=== PATIENT | female | born 1980 | race African-American/Black ===

== ENCOUNTER 2019-11-30 17:40 | Inpatient (IN) | payer OTHER ==
[~2019-11-30] VITALS: Ht 170.2 cm; Wt 86.0 kg
[2019-11-30 19:20] LABS: Urine Bacteria FEW /hpf (None Seen); Urine Blood 2+ /uL (Negative); Urine Mucus FEW (None Seen); Urine Specific Gravity 1.039 (1.001-1.035); Urine WBC 1 /hpf (0 - 5)
[2019-11-30] MEDS ORDERED: LACTATED RINGER'S 1,000 ML IV ONE (21:15)
[2019-11-30 21:54] LABS: Basophils # (auto) 0 10 ^3/uL (0-0.2); Basophils % (auto) 0.4 % (0.0-2.0); Eosinophils # (auto) 0.1 10 ^3/uL (0-0.8); Eosinophils % (auto) 0.6 % (0.0-7.0); Hematocrit 39.6 % (36.0-46.0); Hemoglobin 13.4 g/dL (12.2-16.2); Lymphocytes # (auto) 2.1 10 ^3/uL (0.4-5.4); Mean Corpuscular Hemoglobin 32.4 pg (28.0-32.0); Mean Corpuscular Hgb Conc. 33.9 g/dL (32.0-36.0); Mean Corpuscular Volume 95.8 fL (80.0-100.0); Monocytes # (auto) 0.8 10 ^3/uL (0-1.3); Monocytes % (auto) 7.4 % (0.0-12.0); Neutrophils # (auto) 7.2 10 ^3/uL (1.6-8.6); Neutrophils % (auto) 70.6 % (37.0-80.0); Nucleated Red Blood Cells % 0.1 %; Platelet Count (auto) 248 10^3/uL (140-450); Red Blood Cells 4.13 10^6/uL (4.0-5.20); Red Cell Distribution Width 12.8 % (11.8-14.3); White Blood Cell 10.2 10^3/uL (4.4-10.8)
[2019-11-30 22:05] LABS: Albumin 3.9 g/dL (3.4-5.0); Calcium 8.6 mg/dL (8.5-10.1); Potassium 3.9 mmol/L (3.5-5.1)
[2019-11-30 22:07] LABS: Bilirubin, Total 0.3 mg/dL (0.2-1.0); Magnesium 2.2 mg/dL (1.6-2.6); Total Protein 7.6 g/dL (6.4-8.2)
[2019-11-30 22:30] LABS: INR 1.04 (0.9-1.15)
[2019-11-30] MEDS ORDERED: GLYCOPYRROLATE 0.2 MG/ML 1ML VIAL ONE (23:14)
[2019-11-30] MEDS ORDERED: MEPERIDINE HCL (25 MG/ML) 1ML VIAL ONE (23:14)
[2019-11-30] MEDS ORDERED: SODIUM CHLORIDE LOCK 10 ML ONE (23:14)
[2019-11-30] MEDS ORDERED: NEOSTIGMINE 1 MG/ML INJ (10mg/10ML VIAL) ONE (23:14)
[2019-11-30] MEDS ORDERED: PROPOFOL 10 MG/ML 20 ML IV ONE (23:14)
[2019-11-30] MEDS ORDERED: fentaNYL CITRATE 100 MCG/2 ML VL ONE (23:14)
[2019-11-30] MEDS ORDERED: MIDAZOLAM HCL 1MG/1ML-2 ML VIAL ONE (23:14)
[2019-11-30] MEDS ORDERED: KETOROLAC TROMETH 60MG/2ML VIAL ONE (23:14)
[2019-11-30] MEDS ORDERED: ONDANSETRON HCL 4 MG/2 ML VIAL ONE (23:14)
[2019-11-30] MEDS ORDERED: ROCURONIUM 10MG/ML 10ML VIAL IV ONE (23:14)
[2019-11-30] MEDS ORDERED: KETOROLAC TROMETH 30 MG/ML 1ML VIAL IV ONE (23:30)
[2019-11-30] MEDS ORDERED: HYDROmorphone HCL 2 MG/ML VL IV PRN (23:30)
[2019-11-30] MEDS ORDERED: fentaNYL CITRATE 100 MCG/2 ML VL IV PRN (23:30)
[2019-11-30] MEDS ORDERED: MORPHINE SULFATE 4 MG/ML SYR/VIAL IV PRN (23:30)
[2019-11-30] MEDS ORDERED: METOCLOPRAMIDE HCL 5MG/ml INJ 2ml VIAL IV PRN (23:30)
[2019-11-30] MEDS ORDERED: ceFAZolin 1GM/50ML 50 ML IV ONE (23:36)
[2019-12-01] MEDS ORDERED: KETOROLAC TROMETH 60MG/2ML VIAL ONE (00:51)
[2019-12-01] MEDS ORDERED: ACETAMINOPHEN IV 100 ML IV PRN (01:30)
[2019-12-01] MEDS ORDERED: ONDANSETRON HCL 4 MG/2 ML VIAL IV PRN (01:30)
[2019-12-01] MEDS ORDERED: HYDROmorphone HCL 2 MG/ML VL IV PRN (01:30)
[2019-12-01] MEDS: LACTATED RINGER'S 1,000 ML IV SCH ×4 (01:55→21:17)
[2019-12-01 02:15] VITALS: BP 106/72
--- NOTE | 2019-12-01 02:15 | NUR ---
MS admit from ER JULIÁN HUYNH admitted to tele/MS after SBAR received. Patient oriented to Julissa Maravilla, primary RN, unit, room, bed, and unit policies regarding patient care and visiting hours. Patient weighed by bedscale and encouraged to call if they need something. All questions and concerns addressed, patient verbalized understanding. Note:
[2019-12-01] MEDS: ceFAZolin 1GM/50ML 50 ML IV SCH ×3 (05:41→21:06)
[2019-12-01 06:25] VITALS: BP 103/72
--- NOTE | 2019-12-01 08:00 | NUR ---
Opening Shift Note Assumed care of patient, awake and alert. No S/S of distress/SOB or pain. Dressing clean dry and intact.Instructed on POC and to call for assist PRN, will continue to monitor for changes Q1hr and PRN.
[2019-12-01 09:00] VITALS: BP 104/61
--- NOTE | 2019-12-01 11:11 | NUR ---
Nelson catheter dc'd Order to discontinue nelson catheter, 850 cc clear, yellow urine drained. Nelson dc'd with clean technique following deflation of balloon. Patient tolerated well with no complaints of pain. Continue care.
--- NOTE | 2019-12-01 12:30 | NUR ---
SCOTT UPDATE/ URINATED PATIENT URINATED IN THE TOILET WITHOUT DIFFICULTY, DENIED PAIN OR BURNING.
[2019-12-01 13:00] VITALS: BP_SYST 120; BP_SYST 129; BP_DIAS 62; BP_DIAS 75
--- NOTE | 2019-12-01 14:50 | NUR ---
AMBULATION PATIENT AMBULATED THE HALLWAY WITHOUT DIFFICULTY. TOLERATED WELL.
[2019-12-01 17:00] VITALS: BP 115/69
--- NOTE | 2019-12-01 17:47 | NUR ---
DR HSU CALLED DR HSU HE STATED PATIENT WILL BE DISCHARGED TOMORROW 12/02/19. PATIENT HAS PENDING AM LAB, DIET TO BE ADVANCED PER MD ORDER. PATIENT INFORMED DISCHARGE WILL BE TOMORROW, PATIENT VOICED DISAPPOINTMENT HOWEVER WILL REMAIN UNTIL THE MD ROUNDS.
--- NOTE | 2019-12-01 19:01 | NUR ---
DIET ADVANCED TO FULL LIQUID, NOTIFIED DIETARY.
--- NOTE | 2019-12-01 19:01 | NUR ---
ENDORSED CARE TO NIGHT RN.
[2019-12-01 22:00] VITALS: BP 111/68
--- NOTE | 2019-12-01 23:15 | NUR ---
Patient encouraged to ambulate in hallways. Patient ambulated without discomfort or difficulty. Dressing intact to lower abdomen. Abdominal binder in place. C/O sore throat, afebrile, no coughing, will endorse in am.
[2019-12-02] MEDS: LACTATED RINGER'S 1,000 ML IV SCH ×2 (03:57→10:39)
[2019-12-02] MEDS: ceFAZolin 1GM/50ML 50 ML IV SCH (05:31)
[2019-12-02 05:54] LABS: Basophils # (auto) 0 10 ^3/uL (0-0.2); Basophils % (auto) 0.3 % (0.0-2.0); Eosinophils # (auto) 0 10 ^3/uL (0-0.8); Eosinophils % (auto) 0.2 % (0.0-7.0); Hematocrit 26.1 % (36.0-46.0); Hemoglobin 8.8 g/dL (12.2-16.2); Lymphocytes # (auto) 2.8 10 ^3/uL (0.4-5.4); Lymphocytes % (auto) 27.2 % (10.0-50.0); Mean Corpuscular Hemoglobin 32.5 pg (28.0-32.0); Mean Corpuscular Hgb Conc. 33.8 g/dL (32.0-36.0); Monocytes # (auto) 0.7 10 ^3/uL (0-1.3); Monocytes % (auto) 7.1 % (0.0-12.0); Neutrophils # (auto) 6.8 10 ^3/uL (1.6-8.6); Neutrophils % (auto) 65.2 % (37.0-80.0); Platelet Count (auto) 193 10^3/uL (140-450); Red Blood Cells 2.72 10^6/uL (4.0-5.20); White Blood Cell 10.4 10^3/uL (4.4-10.8)
[2019-12-02 06:04] VITALS: BP 108/60
[2019-12-02 09:00] VITALS: BP 99/53
--- NOTE | 2019-12-02 09:30 | NUR ---
DR HSU BEDSIDE TO DISCHARGE PATIENT. MD ORDERED COVID IN HOUSE TEST TO BE CARRIED OUT.
--- NOTE | 2019-12-02 13:33 | NUR ---
Discharge instructions given as ordered. Encourage to follow up with PMD as instructed. All questions and concerns addressed. Patient verbalized understanding. IV removed with catheter intact, pressure dressing applied, nelson catheter removed. Telemetry unit returned to ICU. Patient taken to vehicle via wheelchair with all personal belongings, accompanied by staff and family member. No distress noted at time of departure.
== END 2019-12-02 14:00 | disposition home or self-care (01) | DRG 817 ==
LOC: ER 17:40 → OVERFLOW 17:41 → WEST WING 12-01 01:17
PROVIDERS: ADMIT Specialist; ATTEND Specialist
PROC: 0UT50ZZ Resection of Right Fallopian Tube, Open Approach (ICD-10-PCS; principal; 2019-11-30 23:43)
DX: O00.101 Right tubal pregnancy without intrauterine pregnancy (principal); K66.1 Hemoperitoneum; O34.219 Maternal care for unspecified type scar from previous cesarean delivery; Z3A.01 Less than 8 weeks gestation of pregnancy; Z82.49 Family history of ischemic heart disease and other diseases of the circulatory system; Z20.828 Contact with and (suspected) exposure to other viral communicable diseases
CPT/HCPCS: 36415; 76801; 76817; 80053; 81001; 83735; 84702; 85025; 85610; 85730; 86850; 86900; 86901; 86920; 99291; G0378; J0131; J0690; J1885; J2250; J2405; J2704

== ENCOUNTER 2020-04-23 07:18 | Day surgery (SDC) | payer OTHER ==
[~2020-04-23] VITALS: Ht 30.5 cm; Wt 0.5 kg
[2020-04-23] MEDS ORDERED: LACTATED RINGER'S 1,000 ML IV SCH ×2 (08:15→11:30)
[2020-04-23 09:11] LABS: Basophils # (auto) 0 10 ^3/uL (0-0.2); Basophils % (auto) 0.4 % (0.0-2.0); Eosinophils # (auto) 0 10 ^3/uL (0-0.8); Eosinophils % (auto) 0.4 % (0.0-7.0); Hematocrit 39.3 % (36.0-46.0); Hemoglobin 13.2 g/dL (12.2-16.2); Lymphocytes # (auto) 1.4 10 ^3/uL (0.4-5.4); Lymphocytes % (auto) 25.8 % (10.0-50.0); Mean Corpuscular Hemoglobin 31.7 pg (28.0-32.0); Mean Corpuscular Hgb Conc. 33.5 g/dL (32.0-36.0); Mean Corpuscular Volume 94.7 fL (80.0-100.0); Monocytes # (auto) 0.4 10 ^3/uL (0-1.3); Monocytes % (auto) 7.7 % (0.0-12.0); Neutrophils # (auto) 3.5 10 ^3/uL (1.6-8.6); Neutrophils % (auto) 65.7 % (37.0-80.0); Platelet Count (auto) 268 10^3/uL (140-450); Red Blood Cells 4.15 10^6/uL (4.0-5.20); Red Cell Distribution Width 13.6 % (11.8-14.3); White Blood Cell 5.4 10^3/uL (4.4-10.8)
[2020-04-23 09:30] LABS: Albumin 3.5 g/dL (3.4-5.0); Calcium 8.3 mg/dL (8.5-10.1)
[2020-04-23 09:33] LABS: BUN/Creatinine Ratio 12.1
[2020-04-23 09:45] LABS: INR 1.03 (0.9-1.15); Partial Thromboplastin Time 28.1 sec (23.0-31.2)
[2020-04-23 09:50] LABS: Bilirubin, Total 0.3 mg/dL (0.2-1.0); Total Protein 7.4 g/dL (6.4-8.2)
[2020-04-23] MEDS ORDERED: ceFAZolin 1GM/50ML 50 ML IV ONE (10:11)
[2020-04-23] MEDS ORDERED: OXYTOCIN 10UNIT/ML 1ML VIAL ONE (10:11)
[2020-04-23] MEDS ORDERED: fentaNYL CITRATE 100 MCG/2 ML VL ONE (10:12)
[2020-04-23] MEDS ORDERED: MIDAZOLAM HCL 1MG/1ML-2 ML VIAL ONE (10:12)
[2020-04-23] MEDS ORDERED: SUCCINYLCHOLINE CHLORIDE 20 MG/ML 10ML VIAL IV ONE (10:50)
[2020-04-23] MEDS ORDERED: ONDANSETRON HCL 4 MG/2 ML VIAL IV PRN ×2 (11:30→11:45)
[2020-04-23] MEDS ORDERED: hydrALAZINE HCL 20 MG/ML VL IV PRN (11:45)
[2020-04-23] MEDS ORDERED: fentaNYL CITRATE 100 MCG/2 ML VL IV PRN (11:45)
[2020-04-23] MEDS ORDERED: ePHEDrine SULFATE 50 MG/ML AMP IV PRN (11:45)
[2020-04-23 12:05] VITALS: BP 119/71
== END 2020-04-23 12:34 | disposition home or self-care (01) ==
LOC: ER 07:18 → SUR 07:19 → ER 09:38 → SUR 12:34
PROVIDERS: ATTEND Specialist
DX: N93.9 Abnormal uterine and vaginal bleeding, unspecified (principal); O36.4XX9 Maternal care for intrauterine death, other fetus; Z98.890 Other specified postprocedural states; Z79.899 Other long term (current) drug therapy; Z37.9 Outcome of delivery, unspecified; Z20.828 Contact with and (suspected) exposure to other viral communicable diseases
CPT/HCPCS: 36415; 59820; 80053; 84702; 85025; 85610; 85730; 86850; 86900; 86901; 87426; 88305; 96374; 99283; C9803; J0330; J0690; J2250; J2590; J3010; U0003